=== PATIENT | female | born 1970 | race Caucasian/White ===

== ENCOUNTER 2022-05-06 10:20 | Emergency (ER) | payer BC ==
[2022-05-06 12:23] LABS: CORONAVIRUS COVID-19 NAA NEGATIVE (NEGATIVE); INFLUENZA A NAA POSITIVE (NEGATIVE); INFLUENZA B NAA NEGATIVE (NEGATIVE); RESPIRATORY SYNCYTIAL VIR NAA NEGATIVE (NEGATIVE)
[2022-05-06 12:45] LABS: CARBON DIOXIDE,CO2 32.7 mmol/L (21.0-32.0)
[2022-05-06] MEDS ORDERED: Acetaminophen 325 MG Tab ONE (14:09)
[2022-05-06] MEDS ORDERED: Acetaminophen 325 MG Tab PO ONE (14:18)
== END 2022-05-06 14:22 | disposition left against medical advice (07) ==
LOC: MW.ED 10:20
DX: J10.1 Influenza due to other identified influenza virus with other respiratory manifestations (principal); F17.210 Nicotine dependence, cigarettes, uncomplicated; Z91.048 Other nonmedicinal substance allergy status; Z20.822 Contact with and (suspected) exposure to COVID-19
CPT/HCPCS: 0241U; 36415; 71046; 80053; 83880; 84484; 85025; 85379; 99283; A9270

== ENCOUNTER 2022-05-30 10:02 | Day surgery (SDC) | payer BC ==
[~2022-05-30 10:02] MED LIST: Lactated Ringers 1,000 ML IV SCH
[2022-05-30] MEDS ORDERED: fentaNYL 50 MCG/ML SDV IVPUSH ONE (10:35)
[2022-05-30] MEDS ORDERED: Lidocaine 2% 5 ML SDV ONE ×2 (13:06→13:08)
[2022-05-30] MEDS ORDERED: Propofol 200 MG/20 ML SDV ONE ×2 (13:07→13:39)
[2022-05-30] MEDS ORDERED: Lactated Ringers 1,000 ML IV SCH (14:15)
== END 2022-05-30 14:35 | disposition home or self-care (01) ==
LOC: MW.SDS 10:02
PROVIDERS: ATTEND Surgery
DX: Z12.11 Encounter for screening for malignant neoplasm of colon (principal); K57.30 Diverticulosis of large intestine without perforation or abscess without bleeding; K62.1 Rectal polyp; E03.9 Hypothyroidism, unspecified; F17.210 Nicotine dependence, cigarettes, uncomplicated; Z79.899 Other long term (current) drug therapy; Z79.82 Long term (current) use of aspirin; Z98.890 Other specified postprocedural states; Z91.048 Other nonmedicinal substance allergy status
CPT/HCPCS: 45380; J2704; J3010; J7120; 00812; J3490